=== PATIENT | female | born 1950 | race Caucasian/White ===

== ENCOUNTER 2016-08-14 07:41 | Day surgery (SDC) | payer MEDICARE, OTHER ==
--- NOTE | ~2016-08-14 | EGD ---
EGD REPORT [facility] [address] [id number] NAME: ABBY CHAMBERS : [birth year] STATUS : REG [facility] [place] PAT#: [id number] AGE: 66 ADM/REG DATE : 08/14/16 MR#: [id number] REPORT SERV DATE: 08/14/16 DICTATED BY: DATE: REPORT STATUS : Draft TRANSCRIBED BY: [employer] DATE: 08/14/16 [facility] Patient Name: Abby Chambers Date of : 1950 Attending MD: NATASHA JENNINGS MD Procedure Date No Time: 08/14/2016 Procedure: Colonoscopy Indications: High risk colon cancer surveillance: Personal history of non-advanced adenoma Referring MD: SAM PIKE MD Medicines: Monitored Anesthesia Care Complications: No immediate complications. Procedure: Pre-Anesthesia Assessment: - ASA Grade Assessment: III - A patient with severe systemic disease. After I obtained informed consent, the scope was passed under direct vision. Throughout the procedure, the patient's blood pressure, pulse, and oxygen saturations were monitored continuously. The PCF [id number] was introduced through the anus and advanced to the cecum, identified by appendiceal orifice and ileocecal valve. The colonoscopy was performed without difficulty. The patient tolerated the procedure well. The quality of the bowel preparation was good. The patient ate lunch yesterday but felt she was clear and could proceed. [place] product was lavaged and mobilized to fully visualize all surfaces. Findings: The perianal and digital rectal examinations were normal. Multiple small and large-mouthed diverticula were found in the entire colon. A sessile polyp was found in the ascending colon. The polyp was diminutive in size. The polyp was removed with a cold biopsy forceps. Resection and retrieval were complete. A sessile polyp was found at the hepatic flexure. The polyp was diminutive in size. The polyp was removed with a cold biopsy forceps. Resection and retrieval were complete. No other significant abnormalities were identified in a careful examination of the remainder of the colon. There is no endoscopic evidence of inflammation, mass or ulcerations in the entire colon. Internal hemorrhoids were found during retroflexion and were Grade I (internal hemorrhoids that do not prolapse). No additional abnormalities were found on retroflexion. EGD REPORT [place] [id number] [place]. [address] NAME: ABBY CHAMBERS : [birth year] STATUS : REG [facility]#: [id number] AGE: 66 ADM/REG DATE : 08/14/16 MR#: [id number] REPORT SERV DATE: 08/14/16 DICTATED BY: DATE: REPORT STATUS : Draft TRANSCRIBED BY: [employer] DATE: 08/14/16 Impression: - Diverticulosis in the entire examined colon. - One diminutive polyp in the ascending colon. Resected and retrieved. - One diminutive polyp at the hepatic flexure. Resected and retrieved. - Internal hemorrhoids. Recommendation: - Patient has a contact number available for emergencies. The signs and symptoms of potential delayed complications were discussed with the patient. Return to normal activities tomorrow. Written discharge instructions were provided to the patient. - High fiber diet. - Discharge patient to home. - Continue present medications. - Await pathology results. - Repeat colonoscopy in 5 years for surveillance. Procedure Code(s): --- Professional --- 06521, Colonoscopy, flexible, proximal to splenic flexure; with biopsy, single or multiple Diagnosis Code(s): --- Professional --- K64.0, First degree hemorrhoids K57.30, Diverticulosis of large intestine without perforation or abscess without bleeding D12.3, Benign neoplasm of transverse colon D12.2, Benign neoplasm of ascending colon Z86.010, Personal history of colonic polyps CPT copyright 2013 [employer]. All rights reserved. The codes documented in this report are preliminary and upon buggy loader review may be revised to meet current compliance requirements. NATASHA JENNINGS MD 08/14/2016 11:13 AM This report has been signed electronically. Number of Addenda: 0 Note Initiated On: 08/14/2016 10:46 AM Scope Withdrawal Time 0 hours 15 minutes 2 seconds [id number] [id number]
[~2016-08-14 07:41] MED LIST: ASAB PO; BIOTIN5 MG PO; CALTRA600D PO; CO Q-10200 MG PO; COR40 PO; FERROUS SULF325 M1 PO; FISH-EPA1000 MG PO; GABAPENTIN CREAM; KEPPRA1000 MG PO; KLONO5 PO; LUTEIN PO; METANX PO; MIACALCIN NAS; MULTIPLE VIT PO; OXYIR5 MG PO; POT GLUCONAT2.5 MEQ PO; PRAVAC PO; PRILO PO; TOPXL50 PO; VOLTAREN1 % TOP
== END 2016-08-14 23:59 | disposition home or self-care (01) ==
LOC: DMU 07:41
PROVIDERS: Internal Medicine Gastroenterology
PROC: 0DBL8ZX Excision of Transverse Colon, Via Natural or Artificial Opening Endoscopic, Diagnostic (ICD-10-PCS; 2016-08-14)
PROC: 0DBK8ZX Excision of Ascending Colon, Via Natural or Artificial Opening Endoscopic, Diagnostic (ICD-10-PCS; principal; 2016-08-14 09:30)
DX: D12.2 Benign neoplasm of ascending colon (principal); K57.30 Diverticulosis of large intestine without perforation or abscess without bleeding; K64.0 First degree hemorrhoids; F41.9 Anxiety disorder, unspecified; I10 Essential (primary) hypertension; Z86.010 Personal history of colon polyps; Z86.73 Personal history of transient ischemic attack (TIA), and cerebral infarction without residual deficits
CPT/HCPCS: 88305